=== PATIENT | female | born 2000 ===

== ENCOUNTER 2020-07-28 07:34 | Emergency (ER) | payer MEDICAID ==
[2020-07-28 07:51] VITALS: BP 138/88
--- NOTE | 2020-07-28 07:55 | Event Note ---
ED Screening Note ED Screening Note: 20 w preg cp/abd pain no d/c no vag bleeding hx preeclampsia staffed with Dr Preciado This initial assessment/diagnostic orders/clinical plan/treatment(s) is/are subject to change based on patients health status, clinical progression and re- assessment by fellow clinical providers in the ED. Further treatment and workup at subsequent clinical providers discretion. Patient/guardian urged not to elope from the ED as their condition may be serious if not clinically assessed and managed. Initial orders include: labs ua us
[2020-07-28] MEDS ORDERED: FAMOTIDINE 20 MG/2 ML INJ IV ONE (07:56)
[2020-07-28] MEDS ORDERED: METOCLOPRAMIDE 10 MG/2 ML INJ IV ONE (07:57)
[2020-07-28] MEDS ORDERED: D5W/0.45% NACL 1,000 ML IV SCH (08:00)
[2020-07-28 08:26] LABS: Hematocrit 40.1 % (30.3-42.9); Hemoglobin 13.9 gm/dl (10.1-14.3); Mean Corpuscular HGB Conc 35 % (30-34); Mean Corpuscular Volume 84 fl (79-97); Platelet Count 290 K/mm3 (140-440); Red Blood Count 4.77 M/mm3 (3.65-5.03); Red Cell Distribution Width 13.2 % (13.2-15.2)
[2020-07-28 08:50] LABS: Alanine Aminotransferase 14 units/L (7-56); Albumin 4.4 g/dL (3.9-5); Blood Urea Nitrogen 9 mg/dL (7-17); Calcium 9.3 mg/dL (8.4-10.2); Hemolysis Index 1
[2020-07-28 09:05] LABS: BUN/Creatinine Ratio 18
--- NOTE | 2020-07-28 09:16 | Ultrasound Report ---
OB ULTRASOUND >= 14 WEEKS FETUS INDICATION: ABD PAIN IN PREG. Nausea and vomiting. COMPARISON: None at this facility FINDINGS: A single gestation intrauterine is present with breech presentation. The placenta is telegraph and teletype operator ior, grade 0 and free of the cervical os. The cervix measures 4.3 cm. heart tones measure 49 bp m. DHRUV was not measured. Subjectively DHRUV is within normal limits. anatomical survey was not performed. Biparietal diameter is 4.6 cm which equals 19 weeks 6 days. Head circumference is 17.2 cm which equals 19 weeks 6 days. Abdominal circumference is 14.5 cm which equals 19 weeks 6 days. Femur length is 3.6 cm which equals 21 weeks 3 days. Overall estimated sonographic age is 20 weeks 2 days. HC/AC ratio: 1.19 Cephalic index: 85.4 Estimated weight 357 g +/- 53 g. IMPRESSION: Viable single intrauterine as described. Breech presentation. No acute abnormality is detected. Signer Name: Ben Goldstein Jr, MD Signed: 07/28/2020 9:11 AM Workstation Name: [id number]
[2020-07-28 10:21] LABS: Total Cells Counted 100
[2020-07-28 10:23] LABS: Band Neutrophils # (Manual) 0.2 K/mm3; RBC Morphology Normal
[2020-07-28 10:24] LABS: Platelet Estimate Consistent w Auto
--- NOTE | 2020-07-31 10:34 | Electrocardiograph Report ---
[facility] Test Date: 2020-07-28 Test Time: 07:58:12 Pat Name: MITCHELL OTERO Department: Room: Gender: F Gold Leaf Gilder: TIBURCIO : 2000 Requested By: SHABANA BROWN Order Number: [id number] Reading MD: Marco Fatima Measurements Intervals [place] Rate: 73 P: 48 [place]: 135 QRS: 41 QRSD: 87 T: 36 QT: 417 QTc: 460 Interpretive Statements Sinus rhythm No previous ECG available for comparison Electronically Signed On 07-31-2020 10:33:36 EDT by Marco Fatima
== END 2020-07-28 10:34 | disposition left against medical advice (07) ==
LOC: ED 07:34
DX: R11.2 Nausea with vomiting, unspecified (principal); Z53.21 Procedure and treatment not carried out due to patient leaving prior to being seen by health care provider
CPT/HCPCS: 36415; 76805; 80053; 83690; 84484; 84702; 85007; 85025; 85610; 93005